=== PATIENT | female | born 1965 | race Caucasian/White ===

== ENCOUNTER 2017-07-08 19:29 | Observation (INO) | payer SELFPAY ==
[2017-07-08] MEDS ORDERED: Nitroglycerin TAB 0.4 MG* 0.4 MG TAB SL ONE (20:08)
[2017-07-08] MEDS ORDERED: Metoprolol Tartrate IV* 1 MG/ML 5 ML VIAL IV ONE (20:08)
[2017-07-08] MEDS ORDERED: Aspirin TAB* 325 MG PO ONE (20:08)
--- NOTE | 2017-07-08 20:17 | RAD ---
INDICATION: Chest pain COMPARISON: None. TECHNIQUE: Single AP portable view of the chest was obtained. FINDINGS: Image quality is compromised due to the relative inferiority of a portable chest x-ray. The heart and mediastinum exhibit normal size and contour. The lungs are grossly clear. There is no evidence of a large pleural effusion. Visualized bones are normal for the patient's age. IMPRESSION: No radiographic evidence for acute cardiopulmonary abnormality on this portable chest x-ray.
[2017-07-08 20:27] LABS: ABS Basophils 0.1 10^3/ul (0-0.2); ABS Eosinophils 0.1 10^3/ul (0-0.6); ABS Lymphocytes 1.7 10^3/ul (1.0-4.8); ABS Monocytes 0.6 10^3/ul (0-0.8); ABS Neutrophils 6.9 10^3/ul (1.5-7.7); ABS Nucleated RBC 0 10^3/ul; Eosinophil % 1.2 % (0-6); Hematocrit 42 % (35-47); Hemoglobin 14.4 g/dl (12.0-16.0); Lymphocyte % 17.7 % (25-47); Mean Corpuscular HGB Conc 34 g/dl (31-36); Mean Corpuscular Hemoglobin 33 pg (27-31); Mean Corpuscular Volume 97 fL (80-97); Nucleated Red Blood Cells % 0; Red Blood Count 4.33 10^6/ul (4.0-5.4); Red Cell Distribution Width 13 % (10.5-15); White Blood Count 9.4 10^3/ul (3.5-10.8)
[2017-07-08 20:31] LABS: EGFR Non-African American 76.2 (>60)
[2017-07-08] MEDS ORDERED: Ondansetron INJ* 2 MG/ML VIAL IV PRN (20:56)
[2017-07-08] MEDS ORDERED: Morphine INJ* 2 MG/ML 1 ML SYRINGE (TWO MG - NEW SYRINGE VERSION) IV PRN (20:56)
[2017-07-08] MEDS ORDERED: Acetaminophen TAB* 325 MG PO PRN (20:56)
[2017-07-08] MEDS ORDERED: Enalapril TAB* 5 MG PO ONE (20:59)
[2017-07-08] MEDS ORDERED: Iohexol 350* (CONTRAST) 500 ML MDV IV ONE (21:20)
--- NOTE | 2017-07-08 21:50 | RAD ---
STUDY: CT angiography of the chest, abdomen and pelvis. INDICATION: Chest pain radiating to the back COMPARISON: CT abdomen pelvis dated December 18, 2006 TECHNIQUE: Multidetector CT angiography of the chest, abdomen and pelvis were obtained from the lung apices to the ischial tuberosities after the intravenous injection of 100 mL Omnipaque 350. Reformats were created in the coronal and sagittal planes. 3-D vascular imaging was created from the source images and reviewed as well. ANGIOGRAPHIC FINDINGS: There are no abrupt filling defects in the centrilobular pulmonary arteries to indicate centrilobular pulmonary embolism. The right mainstem pulmonary artery measures 1.9 cm in diameter. The ascending aorta measures 3.2 cm in the axial plane and the descending aorta measures 2.2 cm. The branch arteries from the arch of the aorta are adequately patent. There is no acute dissection or pathologic aneurysmal dilatation of the thoracic or abdominal aorta. The branch vessels off of the abdominal aorta appear adequately patent. There is in-line flow seen as far as the bilateral common femoral arteries. NON ANGIOGRAPHIC FINDINGS: Chest: The lungs are clear. There are no large pleural effusions. There is no mediastinal or hilar lymphadenopathy. The heart is grossly normal in appearance. Abdomen & Pelvis: The liver is homogenously hypodense relative to the spleen. There are no focal suspicious liver masses. The spleen, pancreas and adrenal glands are grossly normal in appearance. The gallbladder is normal. The kidneys are normal in appearance without focal mass, calcification or signs of hydronephrosis. The renal cortices enhance promptly and symmetrically on arterial phase imaging. Evaluation of the gastrointestinal tract is limited without oral contrast. The small and large bowel are not distended. The diminutive appendix is likely visualized in the right lower quadrant (axial image 172). There are no acute inflammatory changes characteristic of appendicitis. There is no gross retroperitoneal or mesenteric lymphadenopathy. The pelvic viscera is normal in appearance. Degenerative changes of the thoracic and lumbar spine include loss of intervertebral disc height. Most severe degenerative changes are seen at L4/L5 where there is vacuum disc phenomenon. There is sclerotic change and mild subchondral lucencies at both L4/L5 and L5/S1. IMPRESSION: 1. No pathologic aneurysmal dilatation or acute dissection involving the aorta. 2. No centrilobular pulmonary embolism. 3. Likely hepatic steatosis. 4. Other chronic and degenerative changes described in body the report.
[2017-07-08 23:03] LABS: Mean Platelet Volume 7 um3 (7.4-10.4); Platelet Count 309 10^3/ul (150-450)
--- NOTE | 2017-07-09 05:23 | HP ---
CC: Dr. Eduar Hurst * HISTORY AND PHYSICAL: DATE OF ADMISSION: 07/08/17 TIME OF MY EVALUATION: 9:30 p.m. PRIMARY CARE PROVIDER: Eduar Hurst MD. CHIEF COMPLAINT: Chest pain that is started several days ago with dizziness and some radiation to back. HISTORY OF PRESENT ILLNESS: Mr. Busch is a 51-year-old generally healthy woman who complains of ongoing chest discomfort for a few days. She has a marked family history of coronary disease with her father and multiple family members on her father's side dying from heart disease. One of relatives even had a heart transplant. This caused her great concern and she came to the emergency room. EKG did not show any acute ST or T-wave changes and the initial troponin was negative. She had marked hypertension with blood pressures in the 180s/100 range at one point. She was treated acutely with aspirin and also with sublingual nitroglycerin and nitro paste and her chest pain resolved. She had a CTA chest, given the nature of her pain with radiation to her back and this was negative for aneurysmal dilation or dissection. The patient had relief of her chest discomfort with control of her blood pressure. Her blood pressures came down into the 130s/80s and she felt good relief. She has since climbed back up in to the 160s/90s. She is not known to have hypertension. She is not aware if she has got a diagnosis of hypercholesterolemia. She is generally healthy. She does drink 3 alcoholic beverages daily, generally wine. She is a nonsmoker. She does not have any history of coronary disease per se. She has never suffered with chest pain before now. She is accompanied by her . He is concerned that she may be having some perimenopausal symptoms and she is not sure this is the case. They are interested in remaining in the hospital for observation to ensure there is non- ST elevation WI in evolution. PAST MEDICAL HISTORY: Abnormal Pap smear - pending followup with [facility] - patient has been notified of this need for follow up and I saw documents in her medical record to that effect. PAST SURGICAL HISTORY: Limited. OUTPATIENT MEDICATIONS: None. ALLERGIES: No known drug allergies. FAMILY HISTORY: As per HPI, there are multiple family members on her father's side with coronary disease or aneurysms. Her family history was one of the reasons she came to the hospital. SOCIAL HISTORY: The patient is a nonsmoker. She exercises multiple times per week. She is accompanied by her . 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 REVIEW OF SYSTEMS: A review of 14-systems was accomplished at the bedside. This is largely negative except for the pertinent positives as mentioned above in the HPI and past medical history. PHYSICAL EXAMINATION ON ADMISSION GENERAL APPEARANCE: Middle-aged woman appears stated age, in no apparent distress, awake, alert, oriented x3. No chest pain at the time I interviewed her. VITAL SIGNS: Initially temperature was 97.3 Fahrenheit, pulse 80s to 90s and regular, respirations 18 to 20 and unlabored, oxygen saturation 100% room air, blood pressure 176/98 at triage, repeat at 185/104, down to 131/86 with nitroglycerin agents and beta-blockers. HEENT: Oropharynx is clear. Mucous membranes are moist. No posterior pharyngeal erythema or exudates. Pupils equal, round, and reactive to light and accommodation. Cranial nerves II through XII are intact. No facial asymmetry. NECK: Supple. No elevated JVD. Midline trachea. Normal thyroid. No carotid bruits. CHEST: Clear. Breath sounds anteriorly, posteriorly. HEART: Regular, rate, and rhythm. No murmurs, rubs, or gallops. No chest wall tenderness. No pleuritic element to breathing. ABDOMEN: Soft and nontender. Normoactive bowel sounds. NEUROLOGIC: Moves all extremities equally. No sensory, motor, proprioception, reflex component deficiencies. SKIN: Dry, intact, and warm. LYMPH: No adenopathy. PSYCHIATRY: Normal affect. No acute anxiety or depression. ADMISSION DATA: White blood cell count normal 9.4, hemoglobin 14.4, platelets test not performed. Chemistries unremarkable save a modestly elevated anion gap at 12 with the upper limit of normal being 11. She has got a modestly elevated calcium at 10.5 with the upper limit of normal being 10.3 (mild dehydration ?). Her initial troponin is 0.01. Her protein levels and LFTs and other electrolytes are normal. Her total cholesterol was 285 with an LDL component of 116 (elevated). Her HDL component was robust at 150. Her TSH is pending. Her EKG is normal sinus rhythm. No evidence of active ischemia. Her CTA chest showed no aneurysmal dilatation of her ascending or descending aorta. There is no evidence of dissection. No evidence of pulmonary parenchymal disease. IMPRESSION: Ms. Busch is a 51-year-old female, generally healthy, now with quite impressive hypertension and chest pain for several days with substantial family history for coronary disease and related entities. I placed the patient on observation status to complete rule out of myocardial infarction and initiate management of stage 2 to stage 3 hypertension with cardiac symptoms resulting. 1. Hypertension management. I will start with an JOLANTA inhibitor with enalapril tonight followed by 20 mg of lisinopril tomorrow, low threshold to add hydrochlorothiazide as a diuretic management, consider reducing daily alcohol intake to 1 serving - this can cause chronic elevation in blood pressure. 2. Coronary disease - complete rule out with repeat troponins at 3 and 6 hour increments. Outpatient exercise stress test recommended and order made for cardiology team. Patient prefers to follow up with Dr. Franky Mcgraw as he has a relationship with other family members. 3. LDL currently acceptable in the low 100s. Total cholesterol elevated driven by high LDL value. 4. TSH pending - follow up. 5. In the outpatient setting consider management of perimenopausal symptoms which are thought potentially to be a contributing factor with the dizziness. 6. Regular diet while in the hospital. 7. Full code. 8. Surrogate decision maker is patient's . TIME SPENT: Total time taken to admit Ms. Busch was 60 minutes, greater than half the time spent at the bedside going over the history and physical examination, explaining the plan of care to the patient and her . [id number]/[facility] #: [id number] PARMJIT
[2017-07-09] MEDS ORDERED: Lisinopril TAB* 10 MG PO SCH (09:00)
--- NOTE | 2017-07-10 01:16 | DS ---
DISCHARGE SUMMARY: DATE OF ADMISSION: 07/08/17 DATE OF DISCHARGE: 07/09/17 ADMITTING PROVIDER: Tree Gregg MD. ATTENDING PHYSICIAN: Demetris Velazquez MD. PRIMARY CARE PROVIDER: Eduar Hurst MD. CHIEF COMPLAINT: Stabbing chest pain underneath the left breast radiating to lower substernal area; dizziness; shortness of breath. HISTORY OF PRESENT ILLNESS: Ms. Busch is a 51-year-old generally healthy woman but with significant family history of coronary artery disease with father and multiple members of the father's side dying of heart disease. Please see H and P for full details but briefly patient developed discomfort underneath her left breast. She also has chronic pains in her back, particularly underneath her shoulder blade. She additionally became slightly short of breath yesterday. She denied any radiation to the jaws or neck. She presented to the [facility], had a CTA of the chest given the radiation of pain to her back which was negative for any aneurysm or dissection. The pain was actually quite minimal, 1-2/10. She was admitted for ACS rule out. Negative troponin at 0.00 x3. EKG was without any ischemic changes. The patient was also noted to be hypertensive to 185/100 region and was started on enalapril and then lisinopril 20 mg. On the morning of discharge, T-max was 100.4. She is being discharged with outpatient order for stress test and will be called within 24 hours of discharge to arrange this. PAST MEDICAL HISTORY: Abnormal Pap smear. MEDICATIONS: Lisinopril 20 mg daily (new). DIET: No restrictions. ACTIVITY LEVEL: No restrictions. FOLLOWUP: Please follow up with her primary care provider, Dr. Hurst and we will plan a followup with Dr. Mcgraw for outpatient stress test. TIME SPENT: Time spent on discharge, 35 minutes. [id number]/[facility] #: [id number] PARMJIT
[2017-07-11 12:51] VITALS: BP 100/78
== END 2017-07-09 11:33 | disposition home or self-care (01) ==
LOC: ED 19:29 → MEDTELE 20:56 → ICU 23:56
PROVIDERS: ADMIT Internal Medicine; ATTEND Internal Medicine
DX: R07.9 Chest pain, unspecified (principal); R06.02 Shortness of breath; R42 Dizziness and giddiness; I10 Essential (primary) hypertension; I25.10 Atherosclerotic heart disease of native coronary artery without angina pectoris; Z82.49 Family history of ischemic heart disease and other diseases of the circulatory system; R94.31 Abnormal electrocardiogram [ECG] [EKG]
CPT/HCPCS: 36415; 71010; 71275; 74174; 80053; 80061; 83605; 84443; 84484; 85025; 85049; 87641; 93005; 96374; 99284; A9270-GY; G0378; Q9967